=== PATIENT | female | born 1965 | race Caucasian/White ===

== ENCOUNTER 2022-10-21 13:14 | Outpatient (AMB) | payer MEDICARE, MEDICAID, SELFPAY ==
--- NOTE | 2022-10-21 13:15 | MHC.OFFVIS ---
Intake Vital Signs 10/21/22 13:18 Weight 88 lb 6 oz BP 92/60 Blood Pressure Location Rt brachial Position Sitting Pulse 88 Pulse Source Pulse Oximeter Pulse Oximetry (%) 99 Oxygen Delivery Method Room Air Intake Visit Reasons: ENP-R/O TRINO -Confirmed Intake Note: Pt presents today to establish care for ? TRINO , pt feels like she snores Allergies diphenhydramine [From Benadryl] Allergy (Intermediate, Verified 10/21/22 13:22) Unknown Rasberries Adverse Reaction (Intermediate, Uncoded 10/21/22 13:22) Unknown Medication List - Last Reconciled 10/21/22 by Abimbola Iglesias CNP albuterol 90 mcg/actuation mcg inhalation armodafinil 250 mg PO QAM baclofen 10 mg PO DAILY carbamazepine 100 mg PO DAILY clopidogrel 75 mg PO DAILY dextroamphetamine-amphetamine 30 mg ER (Adderall XR) 30 mg PO QAM estradiol 1 packet transdermal DAILY fluconazole 100 mg PO DAILY gabapentin 600 mg PO DAILY linaclotide (Linzess) 290 mcg PO DAILY ocrelizumab (Ocrevus) 600 mg IV [id number] omeprazole 20 mg PO DAILY ropinirole 0.5 mg PO BEDTIME sumatriptan succinate take 1 tab at onset of headache; if no relief, may repeat 1 tab after at least 2 hrs; max = 2 tabs/24 hrs PO topiramate 200 mg PO DAILY verapamil 80 mg PO DAILY HPI HPI Comments History of Present Illness Details 57 y/o female patient with multiple sclerosis presents for new in-person visit for sleep consultation. Pt reports MS and having hard time swallowing. Pt states that she feels chocking when she sleep, and it wakes her up. Pt had a swallowing evaluation done but it was ok. She is on Ocrevus but the last injection was February. She had surgery and several UTI and could not have the injection. Pt reports snoring, and family hx of sleep apnea. She reports non refreshing sleep, frequent arousals and daytime sleepiness. Pt takes armodafinil 250 mg and Adderall XR 30 mg daily to manage daytime sleepiness. She had a in-lab sleep study several years ago, but the result was normal sleep study at that time. She has restless legs syndrome and uses ropinirole 0.5 mg qHS. Sleep questionnaire: Have you ever been diagnosed with a sleep disorder? No. Have you ever had a sleep study in the past? Yes, had a in lab sleep study several years ago. but it was normal at that time. Have you ever been treated for a sleep disorder? Do you take medications for a sleep disorder? Ropinirole, topamax and verapamil, mirtazapine 15 mg Do you snore? Yes. Do you wake up gasping at night? Yes. Do you have episodes of apneas? Yes. If yes, are they witnessed? Yes, family memebers. Do you have episodes of nocturnal chest pain or dyspnea? Yes. Do you have difficulty initiating sleep? Yes Do you have difficulty maintaining sleep? Yes. Do you wake up tired? Yes. Do you have headaches upon awakening? Yes. Do you wake up with dry mouth or throat? Yes. Do you have GERD? Yes. Do you have nocturia? Yes. Do you have nocturnal leg cramps? No. Do you have symptoms of restless legs? Yes. Do you act out your dreams? No. Sleep hygiene questionnaire: What is your usual sleep routine? Usual bedtime is at 9 pm; Usual wake up time is at 9 am. Do you take naps? Yes. Is your sleep environment cool, dark, and quiet? Yes. Do you exercise? Yes, stationay bike every day. Do you take caffeine or other stimulants? Yes, amodafinil and adderall Do you use electronics in bed? No. 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 Hypersomnolence questionnaire: Do you have daytime tiredness or fatigue? Yes. Do you easily fall asleep when inactive? Yes. Have you ever had episodes of sudden weakness? No. Have you ever had episodes of sudden weakness associated with strong emotions? No. [facility] Medical History (Updated 10/21/22 @ 14:06 by Abimbola Iglesias CNP) Ureteral stent present Surgical History (Updated 10/21/22 @ 13:33 by Licha Mejia) Previous back surgery H/O neck surgery H/O abdominal surgery Family History (Updated 10/21/22 @ 13:31 by Licha Mejia) Mother Heart abnormality Father Heart abnormality Sister Lupus Sister Crohn's disease Brother Multiple sclerosis Social History (Updated 10/21/22 @ 13:32 by Licha Mejia) Alcohol intake: never Patient Tobacco Use Status: Current everyday Tobacco user Review of Systems Const All systems reviewed & are unremarkable except as noted in HPI and below ENT Reports Normal hearing present Neuro Reports Normal hearing present Physical Exam Vital Signs: Last Vital Signs Pulse 88 10/21/22 13:18 BP 92/60 10/21/22 13:18 Pulse Ox 99 10/21/22 13:18 Oxygen Delivery Method Room Air 10/21/22 13:18 Const General: cooperative and tired appearing Nutritional Appearance: underweight Orientation/consciousness: patient oriented x3 Neck Neck: Yes full ROM and Yes supple Resp Effort & Inspection: normal respiratory effort and able to speak in complete sentences Neuro General: patient oriented x3, gait normal and moves all extremities Cranial nerves: Yes Normal facial strength present, Yes Midline tongue present, Yes Symmetric palate elevation present, Yes Normal hearing present, Yes Ability to bilaterally rotate head present and Yes Ability to bilaterally elevate shoulders present Cognition (Neuro): normal cognition Gait exam (Neuro): Normal gait present Motor exam (neuro): 5/5 motor strength present throughout, Pronator motor function not present and no tremor noted Psych Appearance: grossly normal Mental Status: mental status grossly normal Speech and movement: Normal speech and movement present Affect: normal affect Attitude: cooperative Assessment & Plan Assessment & Plan (1) Gasping for breath: Code(s): R06.89 - Other abnormalities of breathing (2) Restless legs syndrome: Code(s): G25.81 - Restless legs syndrome (3) Excessive daytime sleepiness: Code(s): G47.19 - Other hypersomnia (4) Snoring: Code(s): R06.83 - Snoring Plan Pt is advised to undergo in lab sleep study to assess for sleep apnea. Will f/u with pt after study to discuss results and appropriate treatment options. Sleep hygiene educaiton provided. Pt to call with any worsening concerns or questions. Orders: Orders RT PSG in-lab sleep study 10/21/22 G25.81 - Restless legs syndrome, G35 - Multiple sclerosis, G47.19 - Other hypersomnia, R06.83 - Snoring, R06.89 - Other abnormalities of breathing Coding Level of Care Code New Pt Level 4 (78461) Diagnoses Gasping for breath R06.89 Restless legs syndrome G25.81 Excessive daytime sleepiness G47.19 Snoring R06.83
[2022-10-21 13:18] VITALS: BP 92/60; PULSE 88; O2SAT 99
== END 2022-10-21 14:01 | disposition home or self-care (01) ==
PROVIDERS: Visit Provider Nurse Practitioner Family
DX: R06.89 Other abnormalities of breathing (principal); G25.81 Restless legs syndrome; G47.19 Other hypersomnia; R06.83 Snoring
CPT/HCPCS: 99204

== ENCOUNTER → 2022-10-21 13:14 | Outpatient (BNVA) | payer MEDICARE, MEDICAID, SELFPAY | PROVIDERS: Visit Provider Nurse Practitioner Family | DX: G25.81 Restless legs syndrome (principal); G47.19 Other hypersomnia; R06.83 Snoring; R06.89 Other abnormalities of breathing | CPT/HCPCS: 99202 ==

== ENCOUNTER → 2022-12-12 20:29 | Outpatient (BNV) | payer MEDICARE, MEDICAID, SELFPAY | PROVIDERS: PCP Internal Medicine; Visit Provider Psychiatry & Neurology Neurology | DX: R06.83 Snoring (principal) | CPT/HCPCS: 95810 ==

== ENCOUNTER → 2022-12-12 20:30 | Outpatient (REF) | payer MEDICARE, MEDICAID, SELFPAY | LOC: HO.SL 20:30 | PROVIDERS: PCP Internal Medicine; Visit Provider Nurse Practitioner Family | DX: R06.83 Snoring (principal); G35 Multiple sclerosis; G47.19 Other hypersomnia; G25.81 Restless legs syndrome; R06.89 Other abnormalities of breathing | CPT/HCPCS: 95810 ==

== ENCOUNTER 2023-05-02 10:43 | Outpatient (AMB) | payer MEDICARE, MEDICAID, SELFPAY ==
--- NOTE | 2023-05-02 10:48 | A.OFFVIS_ITS ---
Vital Signs 05/02/23 10:55 Height 5 ft 5 in Weight 103 lb 2 oz BMI 17.2 BP 112/70 Blood Pressure Location Lt brachial Position Sitting Pulse 86 Pulse Source Pulse Oximeter Pulse Oximetry (%) 96 Oxygen Delivery Method Room Air Intake Visit Reasons: Follow up - LVM w/address Intake Note: Patient presents for f/u. Allergies diphenhydramine [From Benadryl] Allergy (Intermediate, Verified 05/02/23 10:54) Unknown Rasberries Adverse Reaction (Intermediate, Uncoded 10/21/22 13:22) Unknown Medication List - Last Reconciled 05/02/23 by Abimbola Iglesias CNP albuterol 90 mcg/actuation mcg inhalation armodafinil 250 mg PO QAM baclofen 10 mg PO DAILY carbamazepine 100 mg PO DAILY clopidogrel 75 mg PO DAILY dextroamphetamine-amphetamine 30 mg ER (Adderall XR) 30 mg PO QAM estradiol 1 packet transdermal DAILY fluconazole 100 mg PO DAILY gabapentin 600 mg PO DAILY linaclotide (Linzess) 290 mcg PO DAILY mirtazapine 45 mg PO BEDTIME ocrelizumab (Ocrevus) 600 mg IV [id number] omeprazole 20 mg PO DAILY ropinirole 0.5 mg PO BEDTIME sumatriptan succinate take 1 tab at onset of headache; if no relief, may repeat 1 tab after at least 2 hrs; max = 2 tabs/24 hrs PO topiramate 200 mg PO DAILY verapamil 80 mg PO DAILY HPI Comments Details: 57 y/o female patient with hx of MS presents for follow up of sleep study. PSG sleep study result was significant for a loud snoring. There was no evidence of sleep apnea, the AHI was less than 3/hr and the oxygen tara was 91%. She has hard time sleeping, feels one nostril block all the time, and wants for ENT evaluation. She hear herself snoring, and feels massive fluid under her eyes. She started mirtazapine 45 mg yesterday, was on 15 mg before. Pt reports MS and having hard time swallowing. Pt states that she feels chocking when she sleep, and it wakes her up. Pt had a swallowing evaluation done but it was ok. She is on Ocrevus but the last injection was February. She had surgery and several UTI and could not have the injection. She has restless legs syndrome and uses ropinirole 0.5 mg qHS. [facility] Medical History (Updated 10/21/22 @ 14:06 by Abimbola Iglesias CNP) Ureteral stent present Surgical History Previous back surgery H/O neck surgery H/O abdominal surgery Family History Mother Heart abnormality Father Heart abnormality Sister Lupus Sister Crohn's disease Brother Multiple sclerosis Social History Alcohol intake: never Patient Tobacco Use Status: Current everyday Tobacco user Review of Systems Const All systems reviewed & are unremarkable except as noted in HPI and below ENT Reports Normal hearing present Neuro Reports Normal hearing present Physical Exam Vital Signs: Last Vital Signs Pulse 86 05/02/23 10:55 BP 112/70 05/02/23 10:55 Pulse Ox 96 05/02/23 10:55 Oxygen Delivery Method Room Air 05/02/23 10:55 BMI result Body Mass Index 17.2 Const General: cooperative and tired appearing Nutritional Appearance: underweight Orientation/consciousness: patient oriented x3 Neck Neck: Yes full ROM and Yes supple Resp Effort & Inspection: normal respiratory effort and able to speak in complete sentences Neuro General: patient oriented x3, gait normal and moves all extremities Cranial nerves: Yes Normal facial strength present, Yes Midline tongue present, Yes Symmetric palate elevation present, Yes Normal hearing present, Yes Ability to bilaterally rotate head present and Yes Ability to bilaterally elevate shoulders present Cognition (Neuro): normal cognition Gait exam (Neuro): Normal gait present Motor exam (neuro): 5/5 motor strength present throughout, Pronator motor function not present and no tremor noted Psych Appearance: grossly normal Mental Status: mental status grossly normal Speech and movement: Normal speech and movement present Affect: normal affect Attitude: cooperative Assessment & Plan Assessment & Plan (1) Restless legs syndrome: Code(s): G25.81 - Restless legs syndrome Category: Medical (2) Excessive daytime sleepiness: Code(s): G47.19 - Other hypersomnia Category: Medical (3) Snoring: Code(s): R06.83 - Snoring Category: Medical Plan Refer patient to ENT for evaluation of loud snoring. Continue to take armodafinil 250 mg and Adkderall ER 30 mg daily to manage excessive daytime sleepiness. Continue to take ropinirole 0.5 mg qHS to manage restless legs. May try miritazapine lower dose first 7.5 mg for sleep and then increase to 45 mg.
[2023-05-02 10:55] VITALS: BP 112/70; PULSE 86; O2SAT 96; BMI 17.2
== END 2023-05-02 11:12 | disposition home or self-care (01) ==
PROVIDERS: PCP Internal Medicine; Visit Provider Nurse Practitioner Family
DX: G25.81 Restless legs syndrome (principal); G47.19 Other hypersomnia; R06.83 Snoring
CPT/HCPCS: 99214

== ENCOUNTER → 2023-05-02 10:43 | Outpatient (BNVA) | payer MEDICARE, MEDICAID, SELFPAY | PROVIDERS: PCP Internal Medicine; Visit Provider Nurse Practitioner Family | DX: R06.83 Snoring (principal); G25.81 Restless legs syndrome; G47.19 Other hypersomnia; G35 Multiple sclerosis; Z96.0 Presence of urogenital implants | CPT/HCPCS: 99212 ==

== ENCOUNTER 2023-10-20 11:10 | Outpatient (AMB) | payer MEDICARE, MEDICAID, SELFPAY ==
--- NOTE | 2023-10-20 11:18 | MHC.OFFVIS ---
Vital Signs 10/20/23 11:19 Height 5 ft 5 in Weight 95 lb BMI 15.8 BP 106/68 Blood Pressure Location Rt brachial Position Sitting Respiration 16 Pulse 92 Pulse Source Pulse Oximeter Pulse Oximetry (%) 100 Oxygen Delivery Method Room Air Intake Visit Reasons: Follow up Intake Note: Pt presents to the office for a 6 month follow up for RLS. 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 Allergies diphenhydramine [From Benadryl] Allergy (Intermediate, Verified 10/20/23 11:19) Unknown Rasberries Adverse Reaction (Intermediate, Uncoded 10/20/23 11:19) Unknown Medication List - Last Reconciled 10/20/23 by Megan Page MD albuterol 90 mcg/actuation mcg inhalation armodafinil 250 mg PO QAM baclofen 10 mg PO DAILY carbamazepine 100 mg PO DAILY clopidogrel 75 mg PO DAILY dextroamphetamine-amphetamine 30 mg ER (Adderall XR) 30 mg PO QAM estradiol 1 packet transdermal DAILY gabapentin 600 mg PO DAILY linaclotide (Linzess) 290 mcg PO DAILY mirtazapine 45 mg PO BEDTIME ocrelizumab (Ocrevus) 600 mg IV [id number] omeprazole 20 mg PO DAILY ropinirole 0.5 mg PO BEDTIME sumatriptan succinate take 1 tab at onset of headache; if no relief, may repeat 1 tab after at least 2 hrs; max = 2 tabs/24 hrs PO topiramate XR 200 mg PO DAILY verapamil 80 mg PO DAILY HPI Comments Details: 58 y/o female patient with hx of Multiple Sclerosis presents for follow up of Restless Legs syndrome.SHe is on ropinirole 0.25mg 2 tabs qhs 9pm . .she feels creepy crawly sensation , numbness, tingling in her legs as soon as she sits even during the daytime. PSG sleep study result was significant for a loud snoring. There was no evidence of sleep apnea, the AHI was less than 3/hr and the oxygen tara was 91%. Patient is followed at [facility] and Dr Sanchez for her Multiple Sclerosis. she used to see Dr. Juarez in the past for migraines PFSH Medical History Ureteral stent present Surgical History Previous back surgery H/O neck surgery H/O abdominal surgery Family History Mother Heart abnormality Father Heart abnormality Sister Lupus Sister Crohn's disease Brother Multiple sclerosis Social History Alcohol intake: never Patient Tobacco Use Status: Current everyday Tobacco user Review of Systems ENT Reports Normal hearing present Neuro Reports Normal hearing present Physical Exam Vital Signs: Last Vital Signs Pulse 92 10/20/23 11:19 Resp 16 10/20/23 11:19 BP 106/68 10/20/23 11:19 Pulse Ox 100 10/20/23 11:19 Oxygen Delivery Method Room Air 10/20/23 11:19 BMI result Body Mass Index 15.8 Const General: cooperative and tired appearing Nutritional Appearance: underweight Orientation/consciousness: patient oriented x3 Neck Neck: Yes full ROM and Yes supple Resp Effort & Inspection: normal respiratory effort and able to speak in complete sentences Neuro General: patient oriented x3, gait normal and moves all extremities Cranial nerves: Yes Normal facial strength present, Yes Midline tongue present, Yes Symmetric palate elevation present, Yes Normal hearing present, Yes Ability to bilaterally rotate head present and Yes Ability to bilaterally elevate shoulders present Cognition (Neuro): normal cognition Gait exam (Neuro): Normal gait present Motor exam (neuro): 5/5 motor strength present throughout, Pronator motor function not present and no tremor noted Psych Appearance: grossly normal Mental Status: mental status grossly normal Speech and movement: Normal speech and movement present Affect: normal affect Attitude: cooperative Assessment & Plan Assessment & Plan (1) Restless legs syndrome: Code(s): G25.81 - Restless legs syndrome Category: Medical (2) Excessive daytime sleepiness: Code(s): G47.19 - Other hypersomnia Category: Medical Plan Continue to take armodafinil 250 mg and Adkderall ER 30 mg daily to manage excessive daytime sleepiness. Switch to pramipexole ER 0.375 mg qhs D/C ropinirole will review migraine medications next visit Medications: New pramipexole ER 0.375 mg PO BEDTIME 30 tabs 6RF topiramate 100 mg PO BID trazodone 50 mg PO BEDTIME PRN Changed From baclofen 10 mg PO DAILY To baclofen 10 mg PO BID Coding Level of Care Code Est Pt Level 4 (63203) Complex EM visit Add On G2211 Diagnoses Restless legs syndrome G25.81 Excessive daytime sleepiness G47.19
[2023-10-20 11:19] VITALS: BP 106/68; PULSE 92; RESP 16; O2SAT 100; BMI 15.8
== END 2023-10-20 11:51 | disposition home or self-care (01) ==
PROVIDERS: PCP Internal Medicine; Visit Provider Psychiatry & Neurology Neurology
DX: G25.81 Restless legs syndrome (principal); G47.19 Other hypersomnia
CPT/HCPCS: 99214; G2211

== ENCOUNTER → 2023-10-20 11:10 | Outpatient (BNVA) | payer MEDICARE, MEDICAID, SELFPAY | PROVIDERS: PCP Internal Medicine; Visit Provider Psychiatry & Neurology Neurology | DX: G25.81 Restless legs syndrome (principal); G47.19 Other hypersomnia | CPT/HCPCS: 99212 ==